=== PATIENT | male | born 1990 | race Asian ===

== ENCOUNTER 2018-06-16 10:22 | Emergency (ER) | payer OTHER ==
[~2018-06-16] VITALS: Ht 177.8 cm; Wt 56.7 kg
[2018-06-16] MEDS ORDERED: ALBUTEROL SULF8.5 GM INH (10:27)
--- NOTE | 2018-06-16 10:33 | NUR ---
ED Nurse Note: per pt, he has been feeling dizziness, n/v, since this 0700. no active vomiting. per pt headache is present 12/02. pt denies taking medication for n/v and headache.
[2018-06-16 10:35] VITALS: BP 114/73
--- NOTE | 2018-06-16 10:35 | Emergency Room Report ---
History of Present Illness General Chief Complaint: Dizziness Source: Patient Present Illness HPI Patient presents with an episode of acute dizziness that occurred this morning he reports that he has stood up when he felt like he was getting dragged to the floor patient also reports that he has had associated headache nausea vomiting with this Denies any chest pain or shortness of breath Denies any fevers denies any neck pain or photophobia patient reports that he has a family history of aneurysm and was extremely concerned Denies any focal weakness denies any recent trauma Allergies: Coded Allergies: No Known Allergies (Unverified , 06/16/18) Patient History Past Medical History: see triage record Pertinent Family History: none Reviewed Nursing Documentation: PMH: Agreed; PSxH: Agreed Nursing Documentation-PMH Past Medical History: No History, Except For Hx Asthma: Yes Review of Systems All Other Systems: negative except mentioned in HPI Physical Exam Vital Signs Date Time Temp Pulse Resp B/P (MAP) Pulse Ox O2 Delivery O2 Flow Rate FiO2 06/16/18 10:24 97.9 70 16 114/73 100 Room Air Sp02 EP Interpretation: reviewed, normal General Appearance: well appearing, no apparent distress Head: normocephalic, atraumatic Eyes: bilateral eye PERRL, bilateral eye EOMI ENT: hearing grossly normal, normal pharynx, TMs + canals normal, uvula midline Neck: full range of motion, supple, no meningismus, no bony tend Respiratory: lungs clear, normal breath sounds, no rhonchi, no respiratory distress, no retraction, no accessory muscle use Cardiovascular #1: normal peripheral pulses, regular rate, rhythm, no edema, no gallop, no JVD, no murmur Gastrointestinal: normal bowel sounds, non tender, soft, no mass, no organomegaly, non-distended, no guarding, no hernia, no pulsatile mass, no rebound Genitourinary: no CVA tenderness Musculoskeletal: normal inspection Neurologic: oriented x3, responsive, captain's assistant III-XII nml as tested, motor strength/ tone normal, sensory intact Psychiatric: mood/affect normal Skin: normal color, no rash, warm/dry, palpation normal Lymphatic: normal inspection, no adenopathy Medical Decision Making Diagnostic Impression: Primary Impression: Dizziness Additional Impression: Headache ER Course Given the patient's history and presentation Patient is complex with multiple differentials Extensive blood work and imaging is initiated given the patient's concerns of ruptured aneurysm CT head however was negative Blood work is appropriate patient's findings appear to be more consistent with Vertigo and patient will have continued outpatient evaluation and return with any changes cbc normal chem normal Rhythm Strip Diag. Results EP Interpretation: yes Rate: 60 Rhythm: NSR, no PVC's, no ectopy CT/MRI/US Diagnostic Results CT/MRI/US Diagnostic Results : Impression CT head no acute disease Last Vital Signs Date Time Temp Pulse Resp B/P (MAP) Pulse Ox O2 Delivery O2 Flow Rate FiO2 06/16/18 10:24 97.9 70 16 114/73 100 Room Air Status: improved Disposition: HOME, SELF-CARE Condition: Improved Scripts Meclizine Hcl* (MECLIZINE*) 25 Mg Tablet 25 MG ORAL THREE TIMES A DAY, #12 TAB Prov: Theresa Tyler DO 06/16/18 Additional Instructions: Patient is provided with the discharge instructions notified to follow up with primary doctor in the next 2-3 days otherwise return to the er with any worsening symptoms. Please note that this report is being documented using [employer] technology. This can lead to erroneous entry secondary to incorrect interpretation by the dictating instrument. Theresa Tyler DO Jun 16, 2018 10:34
[2018-06-16] MEDS ORDERED: Meclizine 25mg tab ORAL ONE (10:45)
[2018-06-16 10:57] LABS: HEMATOCRIT 49.6 % (42.0-52.0); HEMOGLOBIN 16.8 G/DL (14.2-18.0); MEAN CORPUSCULAR VOLUME 95 FL (80-99); PLATELET COUNT 172 K/UL (150-450); RED CELL DISTRIBUTION WIDTH 11.6 % (11.6-14.8)
--- NOTE | 2018-06-16 11:05 | NUR ---
ED Nurse Note: pt went to CT
[2018-06-16 11:22] LABS: ANION GAP 11 mmol/L (5-15); BLOOD UREA NITROGEN 19 mg/dL (7-18); CALCIUM 9.1 MG/DL (8.5-10.1); CARBON DIOXIDE 25 MMOL/L (21-32); CHLORIDE 102 MMOL/L (98-107); CREATININE 0.9 MG/DL (0.55-1.30); POTASSIUM 4.3 MMOL/L (3.5-5.1); SODIUM 138 MMOL/L (136-145)
[2018-06-16] MEDS ORDERED: MECLIZINE HCL25 MG ORAL (11:57)
[2018-06-16 12:35] VITALS: BP 111/63
--- NOTE | 2018-06-16 13:13 | Diagnostic Imaging Report ---
Indications: Nausea, vomiting, acute onset dizziness Technique: Spiral acquisitions obtained through the brain. Angled axial and coronal 5 x 5 mm slices were reconstructed. Total dose length product 1407.76 mGycm. CTDI vol(s) 70.38 mGy. Dose reduction achieved using automated exposure control Comparison: None. Findings: No acute intracranial hemorrhage nor edema. No mass effect nor midline shift. Normal miller-white differentiation. Normal-sized ventricles and extra-axial CSF spaces. Visualized orbits and sinuses are unremarkable. Intact calvarium. The mastoids are clear Impression: Negative The CT scanner at [facility] is accredited by the [employer] and the scans are performed using protocols designed to limit radiation exposure to as low as reasonably achievable to attain images of sufficient resolution adequate for diagnostic evaluation.
[2018-06-16 13:23] VITALS: BP 120/74
--- NOTE | 2018-06-16 13:24 | NUR ---
ED Nurse Note: Discharge instructions given to pt. Answered all questions. Verbalized understanding. No acute distress noted. ID band and IV site removed. Left ER w/ steady gait and all belongings.
== END 2018-06-16 13:11 | disposition home or self-care (01) ==
LOC: EMR 12:17
DX: R42 Dizziness and giddiness (principal); R51 Headache; R11.2 Nausea with vomiting, unspecified; J45.909 Unspecified asthma, uncomplicated
CPT/HCPCS: 36415; 70450; 80048; 85007; 85025; 96374; 99284; J2405